=== PATIENT | female | born 1995 | race Caucasian/White ===

== ENCOUNTER 2018-09-16 13:25 | Emergency (ER) | payer BC, OTHER ==
[~2018-09-16 13:25] MED LIST: Iopamidol 370 76% 100 ML VIAL ONE
--- NOTE | 2018-09-16 14:29 | CT ---
CONTRAST ENHANCED CT IMAGES OF PELVIS: HISTORY: Straddle injury with fall on a metal pole. FINDINGS: CT images of pelvis demonstrate the pelvic osseous structures to be intact with no evidence of pelvic fractures. The psoas muscle, iliacus and gluteal muscles are intact. The uterus and urinary bladder are unremarkable. There is a moderate size hematoma involving the inferior mons pubis. There is extensive hematoma exte nding into the right and left labia majora. The left labial fold has a slightly larger hematoma than the right. Findings suggest extensive mons and labial without adjacent abnormalities. IMPRESSION: Large mons pubis and labia majora hematomas. Transcribed Date/Time: 09/16/2018 2:42 PM
--- NOTE | 2018-09-16 16:19 | RAD ---
3 views left hand. HISTORY: Trauma fall. AP, lateral and oblique views left hand obtained. 3 views left hand demonstrates no evidence of left hand fractures, subluxations or bony lesions. IMPRESSION: normal 3 views left hand.
[2018-09-16] MEDS ORDERED: Bacitracin Zinc 1 Packet ONE (16:56)
[2018-09-16] MEDS ORDERED: Morphine 4 MG/ML VIAL ONE (17:30)
== END 2018-09-16 17:35 | disposition home or self-care (01) ==
LOC: SCSER 13:25
DX: S30.23XA Contusion of vagina and vulva, initial encounter (principal); W22.8XXA Striking against or struck by other objects, initial encounter
CPT/HCPCS: 72193; 96374; J2270; Q9967

== ENCOUNTER 2021-07-16 09:43 | Outpatient (CLI) | payer OTHER | END 2021-07-16 09:44 | disposition home or self-care (01) | LOC: SCSRAD 09:43 | PROVIDERS: ATTEND Nurse Practitioner Family | DX: M25.562 Pain in left knee (principal) ==